=== PATIENT | female | born 1960 | race American Indian/Alaskan Native ===

== ENCOUNTER 2023-04-11 12:52 | Day surgery (SDC) | payer OTHER ==
[~2023-04-11] VITALS: Ht 167.6 cm; Wt 105.2 kg
[~2023-04-11 12:52] MED LIST: LAMO100 PO; LISHYD2025 PO; ZOLP10 PO
[2023-04-11] MEDS ORDERED: LASIX40 MG (13:16)
[2023-04-11] MEDS ORDERED: PROGESTERO50 MG/1 ML (13:16)
[2023-04-11] MEDS ORDERED: HYDCHL50 (13:17)
[2023-04-11] MEDS ORDERED: LEVSOD75 (13:17)
[2023-04-11 15:35] VITALS: BP 111/65
--- NOTE | 2023-04-11 15:37 | NUR ---
04/11/23 1537 Sal[place] Hopkins IV REMOVED INTACT. SITE WNL.
== END 2023-04-11 15:18 | disposition home or self-care (01) ==
LOC: ORSCSDS 12:52
PROVIDERS: Internal Medicine Gastroenterology
PROC: 0DB58ZX Excision of Esophagus, Via Natural or Artificial Opening Endoscopic, Diagnostic (ICD-10-PCS; principal; 2023-04-11 14:00)
PROC: 0DB68ZX Excision of Stomach, Via Natural or Artificial Opening Endoscopic, Diagnostic (ICD-10-PCS; principal; 2023-04-11 14:00)
PROC: 0DBH8ZX Excision of Cecum, Via Natural or Artificial Opening Endoscopic, Diagnostic (ICD-10-PCS; principal; 2023-04-11 14:00)
DX: R10.13 Epigastric pain (principal); K22.10 Ulcer of esophagus without bleeding; K29.70 Gastritis, unspecified, without bleeding; K44.9 Diaphragmatic hernia without obstruction or gangrene; K58.2 Mixed irritable bowel syndrome; K63.5 Polyp of colon; Z86.010 Personal history of colon polyps; K57.30 Diverticulosis of large intestine without perforation or abscess without bleeding; Z79.82 Long term (current) use of aspirin; Z79.899 Other long term (current) drug therapy
CPT/HCPCS: 88305; 88312; 88342; J2704; J7120